=== PATIENT | female | born 1950 | race Asian ===

== ENCOUNTER 2019-05-07 07:18 | Day surgery (SDC) | payer OTHER, BC ==
[~2019-05-07] VITALS: Ht 160 cm; Wt 63.0 kg
[2019-05-07 07:36] VITALS: BP 115/75
[2019-05-07 09:43] VITALS: BP 134/77
== END 2019-05-07 09:30 | disposition home or self-care (01) ==
LOC: DS 07:18 → OR 07:30 → GI 07:30 → DS 09:30
DX: K29.50 Unspecified chronic gastritis without bleeding (principal); K21.0 Gastro-esophageal reflux disease with esophagitis; K22.70 Barrett's esophagus without dysplasia; I10 Essential (primary) hypertension; E78.5 Hyperlipidemia, unspecified; Z88.0 Allergy status to penicillin; Z98.890 Other specified postprocedural states; Z79.899 Other long term (current) drug therapy; Z78.0 Asymptomatic menopausal state
CPT/HCPCS: 43235; J1200; J1610; J2250; J2310; J3010; J3490